=== PATIENT | male | born 1950 | race Caucasian/White ===

== ENCOUNTER 2024-04-07 17:26 | Emergency (ER) | payer MEDICARE ==
[~2024-04-07] VITALS: Ht 177.8 cm; Wt 81.6 kg
[~2024-04-07 17:26] MED LIST: ALFU10TA PO; ASPI81TA31 PO; ATOR10TA PO; DIAZ10TA4 PO; GABA-532 PO; METF-440 PO; PANT40TA2 PO; PRIM50TA PO; PROP60CA2 PO; ZOLP10TA2 PO
[2024-04-07] MEDS ORDERED: DIPH1TAB PO (18:43)
[2024-04-07] MEDS ORDERED: FIDA200T PO (18:43)
[2024-04-07] MEDS: DIPHENOXYLATE HCL/ATROP SULF TABLET PO ONE (18:49)
[2024-04-07] MEDS ORDERED: DIPHENOXYLATE HCL/ATROP SULF TABLET ONE (18:51)
[2024-04-07 18:53] VITALS: BP 115/71; TEMP 98.2; O2SAT 97
[2024-04-07] MEDS ORDERED: VANC250C5 PO (19:08)
== END 2024-04-07 18:54 | disposition home or self-care (01) ==
LOC: ER 18:37
DX: A04.72 Enterocolitis due to Clostridium difficile, not specified as recurrent (principal); R19.7 Diarrhea, unspecified; Z79.84 Long term (current) use of oral hypoglycemic drugs; Z79.82 Long term (current) use of aspirin; Z79.899 Other long term (current) drug therapy; Z88.7 Allergy status to serum and vaccine
CPT/HCPCS: A4606; A4663